=== PATIENT | female | born 1995 | race Caucasian/White ===

== ENCOUNTER 2019-09-28 12:58 | Outpatient (CLI) | payer MEDICARE, MEDICAID, SELFPAY ==
--- NOTE | 2019-09-28 | XR_ITS ---
WS: [id number] ABDOMEN SERIES Supine and upright views of the abdomen CLINICAL INFORMATION: DIARRHEA COMPARISON: None. FINDINGS: No free air on the upright view. Normal bowel gas pattern. Scattered stool in the colon. No bowel dis tention. No evidence of high-grade obstruction. XR/XR abdomen min 2V [id number] IMPRESSION: Normal abdomen
== END 2019-09-28 12:59 | disposition home or self-care (01) ==
LOC: RADOUTREAD 13:02
PROVIDERS: Family Provider Family Medicine; PCP Internal Medicine; Visit Provider Internal Medicine
DX: Z76.89 Persons encountering health services in other specified circumstances (principal)

== ENCOUNTER → 2020-01-06 15:50 | Outpatient (BNVA) | payer MEDICARE, MEDICAID, SELFPAY | PROVIDERS: Family Provider Family Medicine; PCP Internal Medicine; Visit Provider Nurse Practitioner Family | DX: R30.0 Dysuria (principal); N39.0 Urinary tract infection, site not specified | CPT/HCPCS: 81000; 87086 ==

== ENCOUNTER → 2022-08-20 17:30 | Outpatient (BNVA) | payer MEDICARE, MEDICAID, SELFPAY | PROVIDERS: Family Provider Family Medicine; PCP Family Medicine; Visit Provider Family Medicine | DX: E03.9 Hypothyroidism, unspecified (principal); R30.0 Dysuria; F43.10 Post-traumatic stress disorder, unspecified; F31.9 Bipolar disorder, unspecified | CPT/HCPCS: 80053; 81000; 84443; 85025 ==

== ENCOUNTER 2022-08-21 10:53 | Emergency (ER) | payer MEDICARE, MEDICAID, SELFPAY ==
[2022-08-21 10:57] VITALS: BP 125/81; PULSE 73; RESP 18; TEMP 36.9; O2SAT 99
--- NOTE | 2022-08-21 11:49 | ED_ITS ---
HPI - Fall General: Chief Complaint: Fall Stated Complaint: fall, head pain Time Seen by Provider: 08/21/22 11:03 History of Present Illness: Patient is in with facility staff member. Patient was at day have been [place] sitting on a low stool and went to pull a jacket out from under her and fell sideways off of the stool onto her right side shoulder. Patient believes that she may have hit her head also. The fall was witnessed and the staff member was advised that the patient did not have loss of consciousness. Patient does not feel like she did either. Patient is feeling at baseline neurologically. She does have some burning of her eyes but states this is every time she forgets her glasses and she has lost them. She denies any headache, visual disturbance or changes, nausea, vomiting. She does have some pain on the side of her right shoulder but is able to move her arm normally. Associated symptoms-after fall: Denies abdominal pain, chest pain, difficulty walking or headache(s) Review of Systems Const: Denies: fever(s) or chills Eyes: Reports: eye discomfort (Some burning bilateral eyes-chronic when she does not wear glasses) and other (Baseline right eye-lazy eye); Denies: change in vision, blurry vision or photophobia Card: Denies: chest pain or palpitations Resp: Denies: dyspnea, productive cough or non-productive cough GI: Denies: abdominal pain, nausea or vomiting : Denies: flank pain, difficulty voiding or dysuria Musc: Reports: joint pain (Mild right shoulder pain) Neuro: Denies: headache(s), numbness in extremities, weakness in extremities, sensory changes, lack of coordination or difficulty walking PFS ED PFSH: Medical History Attention deficit hyperactivity disorder Bipolar disorder Gastroesophageal reflux Hypothyroidism (acquired) Mental deficiency Posttraumatic stress disorder Rectal prolapse Treated with bowel resection and re-anastomosis in 12/2018. Surgical History History of intestinal surgery (~12/2018) Treatment of rectal prolapse (bowel resection with re-anastomosis). Performed by Dr. Polanco at [facility] in [place], [place] Family History Grandfather Diabetes Grandmother Hypertension Social History Smoking and tobacco status: former smoker Quit status (tobacco): has quit using tobacco Former quit date comment: Quit age 13. Started age 10. Second hand smoke exposure: No Alcohol intake: never Caregiver/support person: Yes Lives independently: No Household members: caregiver Marital status: Single Current occupational status: disabled History of recent travel: No Current gender identity: Female Special nikolas needs: No Agree to transfusion: Yes Physical Exam Const: COMMON NORMALS: no acute distress, patient oriented x3 and alert HENMT: COMMON NORMALS: atraumatic HEAD & SCALP: normal to inspection and atraumatic; no Garcia's sign, no hematoma, no laceration, no palpable skull fracture, no raccoon eyes and no scalp tenderness Eye: OTHER: Slight ptosis of the right eye patient and staff member report this is baseline Neck/C-Spine: COMMON NORMALS: full ROM, no lymphadenopathy, supple and no JVD Resp: COMMON NORMALS: normal respiratory effort, No use of accessory muscles and clear to auscultation bilaterally AUSCULTATION: clear to auscultation bilaterally Cardio: COMMON NORMALS: no JVD, regular rate, regular rhythm, S1 normal heart sound present, S2 normal heart sound present and No murmurs present (Cardio) RATE: regular rate RHYTHM: regular rhythm HEART SOUNDS: S1 normal heart sound present and S2 normal heart sound present Extremity: NARRATIVE EXTREMITY EXAM: Mild tenderness to palpation the right shoulder with no obvious bony or soft tissue deformity appreciated. Patient has full range of motion to the right arm and shoulder. Neuro: COMMON NORMALS: patient oriented x3, CN's II-XII intact bilaterally, moves all extremities and no focal motor deficits SENSORIUM/ORIENTATION: Yes alert Course Vital Signs: Vital signs: Vital Signs Temperature 98.4 F 08/21/22 10:57 Pulse Rate 73 08/21/22 10:57 Respiratory Rate 18 08/21/22 10:57 Blood Pressure 125/81 08/21/22 10:57 Pulse Oximetry 99 08/21/22 10:57 Oxygen Delivery Me thod 08/21/22 10:57 MDM - Fall Medical Decision Making Consider fall, contusion shoulder, closed head injury Patient's physical exam is benign. She did not have any reported loss of consciousness. At this time, I discussed with patient and staff member that I feel CT of the head would pose more risk than potential benefit. Both patient and staff member agree. I recommend close observation and return to the ER for any new or worsening symptoms. Patient has full range of motion to the right shoulder I do not have a suspicion for bony trauma. Advised patient if she has persisting pain follow-up and at that point she will need x-rays. Discharge patient back to facility. Follow-up with PCP. Return to ER as needed for new or worsening symptoms Discharge Plan Discharge Patient Disposition: Home Clinical Impression: Closed injury of head, Contusion of right shoulder Condition: Stable Prescriptions: No Action aripiprazole 20 mg tablet 20 mg PO .nightly guanfacine 2 mg tablet extended release 24 hr 2 mg PO .nightly hydroxyzine HCl 10 mg tablet 10 mg PO TID PRN Rx Instructions: 8am, 4pm, and 8pm lamotrigine 150 mg tablet 75 mg PO BID omeprazole 40 mg capsule,delayed release(DR/EC) 40 mg PO QDAY calcium carbonate 500 mg calcium (1,250 mg) tablet,chewable 1,000 mg PO QDAY PRN ibuprofen 400 mg tablet 400 mg PO Q6H PRN polyethylene glycol 3350 17 gram powder in packet 17 gm PO QDAY PRN sertraline 100 mg tablet 200 mg PO .hs topiramate 100 mg tablet 100 mg PO BID cholecalciferol (vitamin D3) 1,250 mcg (50,000 unit) capsule 50,000 unit PO .weekly levothyroxine [Synthroid] 150 mcg tablet 150 mcg PO DAILY loratadine [Allergy Relief (loratadine)] 10 mg tablet 10 mg PO DAILY PRN (Reason: allergic symptoms) ondansetron 4 mg tablet,disintegrating 4 mg PO Q8H PRN (Reason: nausea and vomiting) Discharge Orders: Discharge ED (Routine); Ordered 08/21/22 Ordered By: Angelica Marinelli Referrals: Ruma Gonzalez MD [Primary Care Provider] - Discharge Diet: Usual diet Discharge Activity: Resume usual activity Patient Instructions: Contusion, Head Injury (ED) Activity Restrictions/Additional Instructions: You may resume normal activity. Alternate Tylenol and Motrin as needed for pain. Follow-up with primary care provider as needed. Return to the ER for new or worsening symptoms. Coding Level of Care Code ED Casualty Insurance Claim Adjuster for Shahram Carmona
== END 2022-08-21 11:59 | disposition home or self-care (01) ==
PROVIDERS: Emergency Provider Nurse Practitioner Family; PCP Family Medicine
DX: S40.011A Contusion of right shoulder, initial encounter (principal); S09.8XXA Other specified injuries of head, initial encounter; Z87.891 Personal history of nicotine dependence; W07.XXXA Fall from chair, initial encounter
CPT/HCPCS: 99283

== ENCOUNTER → 2022-10-30 16:43 | Outpatient (BNVA) | payer MEDICARE, MEDICAID, SELFPAY | PROVIDERS: PCP Family Medicine; Visit Provider Nurse Practitioner Family | DX: J02.9 Acute pharyngitis, unspecified (principal) | CPT/HCPCS: 87071; 87880 ==

== ENCOUNTER → 2022-12-22 11:47 | Outpatient (BNVA) | payer MEDICARE, MEDICAID, SELFPAY | PROVIDERS: PCP Family Medicine; Visit Provider Family Medicine | DX: E03.9 Hypothyroidism, unspecified (principal); E55.9 Vitamin D deficiency, unspecified; D64.9 Anemia, unspecified; F43.10 Post-traumatic stress disorder, unspecified | CPT/HCPCS: 80053; 80061; 82306; 83540; 84443; 85025 ==

== ENCOUNTER 2023-02-10 20:41 | Emergency (ER) | payer MEDICARE, MEDICAID, SELFPAY ==
[2023-02-10 20:51] VITALS: BP 128/83; PULSE 75; RESP 16; TEMP 36.9; O2SAT 97; BMI 36.9
--- NOTE | 2023-02-10 21:12 | W.ED.ABDPA2 ---
HPI - Abdominal Pain General: Chief Complaint: Abdominal Pain Stated Complaint: somehting hanging out of rectum Time Seen by Provider: 02/10/23 20:59 History of Present Illness: Patient presents to the ER with complaints of a probable rectal prolapse. Patient has had 1 in the past that required surgery. Today when she had a bowel movement after being constipated she noticed that she prolapse. Patient then states it spontaneously reduced but it feels like its gone continually prolapse. Patient did go see her primary caregiver at [facility] but had reduced by then she placed her on triamcinolone and nystatin creams for the irritation of her rectum. Review of Systems General: Reports: 10 or more systems reviewed and unremarkable except in HPI and below PFSH ED PFSH: Medical History Attention deficit hyperactivity disorder Bipolar disorder Gastroesophageal reflux Hypothyroidism (acquired) Mental deficiency Posttraumatic stress disorder Psychiatric care Rectal prolapse Treated with bowel resection and re-anastomosis in 12/2018. Surgical History History of intestinal surgery (~12/2018) Treatment of rectal prolapse (bowel resection with re-anastomosis). Performed by Dr. Polanco at [facility] in [place], [place] Family History Grandfather Diabetes Grandmother Hypertension Social History Smoking and tobacco status: former smoker Quit status (tobacco): has quit using tobacco Former quit date comment: Quit age 13. Started age 10. Second hand smoke exposure: No Alcohol intake: never Substance/Drug Use: never Caregiver/support person: Yes Lives independently: No Household members: caregiver Marital status: Single Current occupational status: disabled Current gender identity: Female Special nikolas needs: No Agree to transfusion: Yes Physical Exam Const: COMMON NORMALS: no acute distress, average body habitus, patient oriented x3, healthy appearing, alert and well nourished Neck/C-Spine: COMMON NORMALS: no JVD Chest: COMMONS NORMALS: normal inspection of the chest and normal palpation of entire chest wall Resp: COMMON NORMALS: normal respiratory effort, No retractions, No use of accessory muscles and clear to auscultation bilaterally AUSCULTATION: clear to auscultation bilaterally Cardio: COMMON NORMALS: no JVD, regular rate, regular rhythm, S1 normal heart sound present, S2 normal heart sound present, No gallops present (Cardio), No clicks present (Cardio), No murmurs present (Cardio) and No rub (Cardio) RATE: regular rate RHYTHM: regular rhythm HEART SOUNDS: S1 normal heart sound present and S2 normal heart sound present GI: COMMON NORMALS: Normal to inspection, nondistended, normoactive bowel sounds present, Soft to palpation, non-tender, No hepatosplenomegaly present and no masses PALPATION: Yes Soft to palpation and Yes No hepatosplenomegaly present OTHER: Upon first evaluation of the external rectal area there was no rectal prolapse. But upon spreading of the cheeks a rectal prolapse spontaneously appeared. This was mild and was easily reduced. Neuro: COMMON NORMALS: patient oriented x3 SENSORIUM/ORIENTATION: Yes alert Course Vital Signs: Vital signs: Vital Signs Temperature 98.4 F 02/10/23 20:51 Pulse Rate 75 02/10/23 20:51 Respiratory Rate 16 02/10/23 20:51 Blood Pressure 128/83 02/10/23 20:51 Pulse Oximetry 97 02/10/23 20:51 Oxygen Delivery Me thod Room Air 02/10/23 20:51 MDM - Abdominal Pain Medical Decision Making Patient presented to the ER with complaints of a rectal prolapse earlier today which self reduced. Upon exam there was no rectal prolapse at first and mild rectal prolapse started appearing which was easily reduced. This was explained to the patient and her caregiver that this will probably keep happening until she sees a surgeon for probable surgery. Patient's caregiver and her understood and we told him we would refer them to case management to get a referral to a surgeon. Differential Diagnosis Unlikely abdominal pain, acute appendicitis, calculus of kidney, constipation, diverticulitis, endometriosis, gastroenteritis, pancreatitis or small bowel obstruction Medical Records I reviewed the patient's medical records. Lab Data I reviewed the patient's lab results. Discharge Plan Discharge Patient Disposition: Home Clinical Impression: Rectal prolapse Condition: Stable Prescriptions: No Action aripiprazole 20 mg tablet 20 mg PO .nightly guanfacine 2 mg tablet extended release 24 hr 2 mg PO .nightly hydroxyzine HCl 10 mg tablet 10 mg PO TID PRN Rx Instructions: 8am, 4pm, and 8pm lamotrigine 150 mg tablet 75 mg PO BID calcium carbonate 500 mg calcium (1,250 mg) tablet,chewable 1,000 mg PO QDAY PRN polyethylene glycol 3350 17 gram powder in packet 17 gm PO QDAY PRN sertraline 100 mg tablet 200 mg PO .hs topiramate 100 mg tablet 100 mg PO BID cholecalciferol (vitamin D3) 1,250 mcg (50,000 unit) capsule 50,000 unit PO .weekly loratadine [Allergy Relief (loratadine)] 10 mg tablet 10 mg PO DAILY PRN (Reason: allergic symptoms) nystatin 100,000 unit/mL suspension 5 ml PO QID 7 Days Qty: 140 0RF Rx Instructions: swish and swallow Robitussin Cough-Chest Fadi DM 5-50 mg/5 mL liquid 20 ml PO Q4H PRN (Reason: cough) Qty: 200 2RF clotrimazole [Lotrimin AF (clotrimazole)] 1 % cream 1 applic topical BID 14 Days Qty: 45 0RF rosuvastatin 5 mg tablet 5 mg PO DAILY Qty: 30 2RF omeprazole 40 mg capsule,delayed release(DR/EC) 40 mg PO QDAY Qty: 30 2RF levothyroxine [Synthroid] 150 mcg tablet See Rx Instructions .ROUTE .COMPLEX Qty: 30 4RF Dose Instruction: TAKE ONE TABLET BY MOUTH ONCE EVERY DAY Rx Instructions: TAKE ONE TABLET BY MOUTH ONCE EVERY DAY ibuprofen 400 mg tablet 400 mg PO Q6H PRN (Reason: fever of 100.2 or greater or pain) Qty: 100 0RF ondansetron 4 mg tablet,disintegrating 4 mg PO Q8H PRN (Reason: nausea and vomiting) Qty: 30 0RF Discharge Orders: Discharge ED (Routine); Ordered 02/10/23 Ordered By: Louis Ray Referrals: Ruma oGnzalez MD [Primary Care Provider] - 1-3 days Patient Instructions: Rectal Prolapse (ED) Activity Restrictions/Additional Instructions: He had been referred to case management for referral to a general surgeon for consultation on your rectal prolapse. They should call you tomorrow for an appointment but sometimes it takes 1-2 business days if you have not heard from them please feel free to call back. In the meantime try to increase your fiber and take [id number] stool supplements to avoid constipation and straining. If you have a prolapse again you may try to reduce it yourself but if you are unsuccessful return to the ER for further evaluation and treatment. Coding Level of Care Code ED Concrete Form Setter for Shahram Carmona
[2023-02-10 21:23] VITALS: BP 136/81; PULSE 74; RESP 18; O2SAT 98
[2023-02-10 21:25] VITALS: BP 136/81; PULSE 79; RESP 18; O2SAT 98
--- NOTE | 2023-02-11 08:40 | DCPLANNER ---
Addendum entered by Juliette Resendiz 02/12/23 15:36: solutions manager called clinic to confirm that patients information had been received. solutions manager was told that patients information had been received, clinic will call patient with appointment information. Addendum entered by Juliette Resendiz 02/11/23 10:48: solutions manager received the following message from the general surgery clinic regarding follow up appointment: After speaking with provider, it was decided that we do not handle rectal prolapse! Please refer elsewhere solutions manager spoke with patients guardian, patient referred to [facility]. Original Note: solutions manager had message to schedule a follow up appointment for patient with general surgery. solutions manager sent patients information to the front office staff at general surgery. Patients information will be printed and reviewed. Clinic will call patient with appointment information.
== END 2023-02-10 21:29 | disposition home or self-care (01) ==
PROVIDERS: Emergency Provider Emergency Medicine; PCP Family Medicine
DX: K62.3 Rectal prolapse (principal); E03.9 Hypothyroidism, unspecified; Z79.899 Other long term (current) drug therapy; Z87.891 Personal history of nicotine dependence
CPT/HCPCS: 99282

== ENCOUNTER 2023-02-11 09:30 | Emergency (ER) | payer MEDICARE, MEDICAID, SELFPAY ==
--- NOTE | 2023-02-11 09:53 | W.ED.GENADLT ---
HPI - General Adult General: Chief complaint: General Medical Stated complaint: rectal prolapse Time Seen by Provider: 02/11/23 09:33 Source: patient Mode of arrival: ambulatory History of Present Illness: 27-year-old female presents emergency room with complaint of rectal prolapse. She was seen last evening with the same complaint. She previous had a rectal prolapse and had a surgical correction of it in 2016 she intermittently feels like it is prolapsing last night she was seen initially it was not began a prolapse that was easily self reducing. She has not had any bright red blood per rectum she has had some triamcinolone nystatin cream she has been using topically around the rectum for irritation. Onset (ago): day(s) Severity: mild Relieving factors: none Exacerbating factors: none Associated symptoms: Deny chest pain, confusion, cough, diaphoresis, decreased appetite, dyspnea, fevers/chills, headache(s), malaise, nausea, rash, palpitations, seizures, short of breath, syncope, vomiting or weakness Review of Systems Const: Denies: fever(s), chills, malaise or diaphoresis ENMT: Denies: throat pain, ear or mastoid pain, nasal discharge or nasal congestion Card: Denies: chest pain, palpitations or syncope Resp: Denies: dyspnea GI: Reports: rectal pain; Denies: abdominal pain, nausea or vomiting : Denies: flank pain, difficulty voiding, dysuria, urinary frequency or urinary urgency Skin/Breast: Denies: rash or pruritus Neuro: Denies: headache(s) or confusion PFS ED PFSH: Medical History Attention deficit hyperactivity disorder Bipolar disorder Gastroesophageal reflux Hypothyroidism (acquired) Mental deficiency Posttraumatic stress disorder Psychiatric care Rectal prolapse Treated with bowel resection and re-anastomosis in 12/2018. Surgical History History of intestinal surgery (~12/2018) Treatment of rectal prolapse (bowel resection with re-anastomosis). Performed by Dr. Polanco at [facility] in [place], [place] Family History Grandfather Diabetes Grandmother Hypertension Social History (Reviewed 02/11/23 @ 09:59 by REJI Abreu Smoking and tobacco status: former smoker Quit status (tobacco): has quit using tobacco Former quit date comment: Quit age 13. Started age 10. Second hand smoke exposure: No Alcohol intake: never Substance/Drug Use: never Caregiver/support person: Yes Lives independently: No Household members: caregiver Marital status: Single Current occupational status: disabled Current gender identity: Female Special nikolas needs: No Agree to transfusion: Yes Physical Exam Const: GENERAL APPEARANCE: cooperative and comfortable ORIENTATION/CONSCIOUSNESS: Yes awake, Yes oriented to person, Yes oriented to place and Yes oriented to time HENMT: COMMON NORMALS: normocephalic, atraumatic and hearing grossly normal bilaterally HEAD & SCALP: normocephalic and atraumatic Resp: COMMON NORMALS: normal respiratory effort, No retractions, No use of accessory muscles and clear to auscultation bilaterally AUSCULTATION: clear to auscultation bilaterally Cardio: COMMON NORMALS: regular rate, regular rhythm and No murmurs present (Cardio) RATE: regular rate RHYTHM: regular rhythm GI: COMMON NORMALS: Soft to palpation and No hepatosplenomegaly present AUSCULTATION: Yes normoactive bowel sounds PALPATION: Yes Soft to palpation, No Tenderness to palpation present (GI), No Guarding due to palpation present (GI) and Yes No hepatosplenomegaly present Extremity: COMMON NORMALS: normal to inspection, capillary refill normal, no clubbing, cyanosis or edema, no calf tenderness and no pedal edema Neuro: SENSORIUM/ORIENTATION: Yes oriented to person, Yes oriented to place and Yes oriented to time Skin: COMMON NORMALS: no rashes or lesions noted GENERAL SKIN EXAM: no rashes or lesions noted [facility] - General Adult Medical Decision Making Rectal prolapse is spontaneously reducing when he went back to evaluate it with nurse power plant installer it had reduced on its own. She is listed as taking her MiraLAX as as needed increase that to daily regular avoid fibers that will increase bulk to the stool and may cause further problems MiraLAX probably be a better option we will get her set up to follow-up with colorectal surgery no emergent intervention needed at this time Medical Records I reviewed the patient's medical records. Discharge Plan Discharge Patient Disposition: Home Clinical Impression: Rectal prolapse Condition: Stable Prescriptions: New polyethylene glycol 3350 17 gram/dose powder 17 g PO DAILY Qty: 850 0RF Changed polyethylene glycol 3350 17 gram powder in packet 17 gm PO QDAY Qty: 30 0RF No Action aripiprazole 20 mg tablet 20 mg PO .nightly guanfacine 2 mg tablet extended release 24 hr 2 mg PO .nightly hydroxyzine HCl 10 mg tablet 10 mg PO TID PRN Rx Instructions: 8am, 4pm, and 8pm lamotrigine 150 mg tablet 75 mg PO BID calcium carbonate 500 mg calcium (1,250 mg) tablet,chewable 1,000 mg PO QDAY PRN sertraline 100 mg tablet 200 mg PO .hs topiramate 100 mg tablet 100 mg PO BID cholecalciferol (vitamin D3) 1,250 mcg (50,000 unit) capsule 50,000 unit PO .weekly loratadine [Allergy Relief (loratadine)] 10 mg tablet 10 mg PO DAILY PRN (Reason: allergic symptoms) nystatin 100,000 unit/mL suspension 5 ml PO QID 7 Days Qty: 140 0RF Rx Instructions: swish and swallow Robitussin Cough-Chest Fadi DM 5-50 mg/5 mL liquid 20 ml PO Q4H PRN (Reason: cough) Qty: 200 2RF clotrimazole [Lotrimin AF (clotrimazole)] 1 % cream 1 applic topical BID 14 Days Qty: 45 0RF rosuvastatin 5 mg tablet 5 mg PO DAILY Qty: 30 2RF omeprazole 40 mg capsule,delayed release(DR/EC) 40 mg PO QDAY Qty: 30 2RF levothyroxine [Synthroid] 150 mcg tablet See Rx Instructions .ROUTE .COMPLEX Qty: 30 4RF Dose Instruction: TAKE ONE TABLET BY MOUTH ONCE EVERY DAY Rx Instructions: TAKE ONE TABLET BY MOUTH ONCE EVERY DAY ibuprofen 400 mg tablet 400 mg PO Q6H PRN (Reason: fever of 100.2 or greater or pain) Qty: 100 0RF ondansetron 4 mg tablet,disintegrating 4 mg PO Q8H PRN (Reason: nausea and vomiting) Qty: 30 0RF Discharge Orders: Discharge ED (Routine); Ordered 02/11/23 Ordered By: Myles Sher Referrals: Ruma Gonzalez MD [Primary Care Provider] - Discharge Diet: Low Fat Discharge Activity: Resume usual activity Patient Instructions: Opioid Safety, Pain Management Activity Restrictions/Additional Instructions: Use the MiraLAX daily. Case management will make arrangements for you for a referral to colorectal surgery. Coding Level of Care Code ED Business Management Intern for Shahram Carmona
== END 2023-02-11 10:47 | disposition home or self-care (01) ==
PROVIDERS: Emergency Provider Family Medicine; PCP Family Medicine
DX: K62.3 Rectal prolapse (principal)
CPT/HCPCS: 99283

== ENCOUNTER 2023-02-12 16:50 | Emergency (ER) | payer MEDICARE, MEDICAID, SELFPAY ==
[2023-02-12 17:02] VITALS: BP 129/76; PULSE 77; RESP 18; TEMP 36.7; O2SAT 97; BMI 36.9
--- NOTE | 2023-02-12 17:10 | ED_ITS ---
HPI - Extremity Problem General: Chief complaint: Extremity Injury, Lower Stated complaint: prolapsed rectum Time Seen by Provider: 02/12/23 17:05 History of Present Illness: 27-year-old female brought to emergency room by balance wheel motion inspector due to prolapsed rectum while having a BM today. Patient was seen and evaluated in the ER twice for similar complaint. Upon present emergency room today patient has any pain. No rectal bleeding, abdominal pain, nausea or vomiting. Review of Systems General: Reports: 10 or more systems reviewed and unremarkable except in HPI and below GI: Reports: rectal swelling; Denies: abdominal pain, nausea, vomiting, hematemesis, coffee ground emesis, dysphagia, excessive flatus, fecal incontinence, change in bowel habits, pain on defecation, rectal pain, rectal itching, change in stool character, hematochezia, melena or mucus in stool PFSH ED PFSH: Medical History Attention deficit hyperactivity disorder Bipolar disorder Gastroesophageal reflux Hypothyroidism (acquired) Mental deficiency Posttraumatic stress disorder Psychiatric care Rectal prolapse Treated with bowel resection and re-anastomosis in 12/2018. Surgical History History of intestinal surgery (~12/2018) Treatment of rectal prolapse (bowel resection with re-anastomosis). Performed by Dr. Polanco at [facility] in [place], [place] Family History Grandfather Diabetes Grandmother Hypertension Social History Smoking and tobacco status: former smoker Quit status (tobacco): has quit using tobacco Former quit date comment: Quit age 13. Started age 10. Second hand smoke exposure: No Alcohol intake: never Substance/Drug Use: never Caregiver/support person: Yes Lives independently: No Household members: caregiver Marital status: Single Current occupational status: disabled Current gender identity: Female Special nikolas needs: No Agree to transfusion: Yes Physical Exam Const: COMMON NORMALS: no acute distress, average body habitus, patient oriented x3, no limitations, healthy appearing, alert and well nourished Neck/C-Spine: COMMON NORMALS: no JVD Resp: COMMON NORMALS: normal respiratory effort, No retractions, No use of accessory muscles, clear to auscultation bilaterally and percussion normal AUSCULTATION: clear to auscultation bilaterally PERCUSSION: percussion normal Cardio: COMMON NORMALS: no JVD, regular rate, regular rhythm, S1 normal heart sound present, S2 normal heart sound present, No gallops present (Cardio), No clicks present (Cardio), No murmurs present (Cardio), No rub (Cardio) and Peripheral pulses 2+ throughout RATE: regular rate RHYTHM: regular rhythm HEART SOUNDS: S1 normal heart sound present and S2 normal heart sound present PERIPHERAL PULSES: Peripheral pulses 2+ throughout GI: INSPECTION: No Laceration(s) present (GI) RECTAL EXAM: visual inspection normal, No External hemorrhoid(s) present, No Internal hemorrhoid(s) present, No Rectal prolapse, no fecal impaction, no lesion(s) noted, no fissure noted and no laceration(s) noted : COMMON NORMALS: Yes no CVA tenderness, Yes normal external appearance, Yes normal appearance of the vagina, Yes normal appearance of the cervix, Yes normal bimanual exam, Yes No adnexal tenderness and Yes no masses BLADDER/KIDNEY EXAM: Yes no CVA tenderness BIMANUAL EXAM - VAGINA & UTERUS: Yes normal bimanual exam Back/Pelvis: COMMON NORMALS: no CVA tenderness Neuro: COMMON NORMALS: patient oriented x3 SENSORIUM/ORIENTATION: Yes alert Course Vital Signs: Vital signs: Vital Signs Temperature 98.0 F 02/12/23 17:02 Pulse Rate 77 02/12/23 17:02 Respiratory Rate 18 02/12/23 17:02 Blood Pressure 129/76 02/12/23 17:02 Pulse Oximetry 97 02/12/23 17:02 Oxygen Delivery Me thod Room Air 02/12/23 17:02 MDM - Extremity (Nontraumatic) Medical Decision Making Patient has been comfortable emergency room. Discussed current plan with the career development counselor and patient. She has a thorough examination no obvious rectal prolapse noted. She will be given referral to see GI for further evaluation and treatment. Discharge Plan Discharge Patient Disposition: Home Clinical Impression: Rectal prolapse Condition: Stable Prescriptions: No Action aripiprazole 20 mg tablet 20 mg PO .nightly guanfacine 2 mg tablet extended release 24 hr 2 mg PO .nightly hydroxyzine HCl 10 mg tablet 10 mg PO TID PRN Rx Instructions: 8am, 4pm, and 8pm lamotrigine 150 mg tablet 75 mg PO BID calcium carbonate 500 mg calcium (1,250 mg) tablet,chewable 1,000 mg PO QDAY PRN sertraline 100 mg tablet 200 mg PO .hs topiramate 100 mg tablet 100 mg PO BID cholecalciferol (vitamin D3) 1,250 mcg (50,000 unit) capsule 50,000 unit PO .weekly loratadine [Allergy Relief (loratadine)] 10 mg tablet 10 mg PO DAILY PRN (Reason: allergic symptoms) nystatin 100,000 unit/mL suspension 5 ml PO QID 7 Days Qty: 140 0RF Rx Instructions: swish and swallow Robitussin Cough-Chest Fadi DM 5-50 mg/5 mL liquid 20 ml PO Q4H PRN (Reason: cough) Qty: 200 2RF clotrimazole [Lotrimin AF (clotrimazole)] 1 % cream 1 applic topical BID 14 Days Qty: 45 0RF rosuvastatin 5 mg tablet 5 mg PO DAILY Qty: 30 2RF omeprazole 40 mg capsule,delayed release(DR/EC) 40 mg PO QDAY Qty: 30 2RF levothyroxine [Synthroid] 150 mcg tablet See Rx Instructions .ROUTE .COMPLEX Qty: 30 4RF Dose Instruction: TAKE ONE TABLET BY MOUTH ONCE EVERY DAY Rx Instructions: TAKE ONE TABLET BY MOUTH ONCE EVERY DAY ibuprofen 400 mg tablet 400 mg PO Q6H PRN (Reason: fever of 100.2 or greater or pain) Qty: 100 0RF ondansetron 4 mg tablet,disintegrating 4 mg PO Q8H PRN (Reason: nausea and vomiting) Qty: 30 0RF polyethylene glycol 3350 17 gram powder in packet 17 gm PO QDAY Qty: 30 0RF polyethylene glycol 3350 17 gram/dose powder 17 g PO DAILY Qty: 850 0RF Discharge Orders: Discharge ED (Routine); Ordered 02/12/23 Ordered By: Kuldeep Combs Referrals: Ruma Gonzalez MD [Primary Care Provider] - Basim Pino DO [Physician] - 1-3 days Patient Instructions: Opioid Safety, Pain Management Coding Level of Care Code ED Career Development Counselor for Chg Kristine
== END 2023-02-12 18:59 | disposition home or self-care (01) ==
PROVIDERS: Emergency Provider Family Medicine; PCP Family Medicine
DX: K62.3 Rectal prolapse (principal)
CPT/HCPCS: 99283

== ENCOUNTER → 2023-03-10 17:38 | Outpatient (BNVA) | payer MEDICARE, MEDICAID, SELFPAY | PROVIDERS: PCP Family Medicine; Visit Provider Family Medicine | DX: E78.5 Hyperlipidemia, unspecified (principal) | CPT/HCPCS: 80061 ==

== ENCOUNTER 2023-04-26 21:23 | Emergency (ER) | payer MEDICARE, MEDICAID, SELFPAY ==
[2023-04-26] VITALS (9 sets, daily range): BP systolic 106–130; BP diastolic 60–82; PULSE 93; RESP 16; TEMP 36.6; O2SAT 97–100
--- NOTE | 2023-04-26 22:08 | PC.NURSE ---
this nurse was in the room with Dr. Wang while he performed a rectal examine
--- NOTE | 2023-04-26 22:19 | XRR_ITS ---
PROCEDURE INFORMATION: Exam: XR Abdomen Exam date and time: 04/26/2023 10:31 PM Age: 28 years old Clinical indication: Abdominal pain; Additional info: Abd pain TECHNIQUE: Imaging protocol: Radiologic exam of the abdomen. Views: Frontal supine view of the abdomen. 1 View. COMPARISON: CR XR abdomen min 2V [id number] 09/28/2019 11:13 AM FINDINGS: Gastrointestinal tract: Normal. No bowel dilation. Bones/joints: Unremarkable. XR/XR KUB portable [id number] IMPRESSION: No acute findings.
--- NOTE | 2023-04-26 22:57 | W.ED.GENADLT ---
HPI - General Adult General: Chief complaint: General Medical Stated complaint: bleeding in stool Time Seen by Provider: 04/26/23 21:51 History of Present Illness: 28-year-old female who is 1 week out from rectal reconstruction surgery for repeated rectal prolapse. She complains of significant rectal bleeding today. She has bled since her surgery, but it had been improving. There was an increased amount of rectal bleeding with clotting today. She notes that her rectum is more uncomfortable than it has been. She is worried that she tore stitches. Associated symptoms: Reports nausea; Deny chest pain, dyspnea, headache(s), rash, palpitations or vomiting Review of Systems Const: Denies: fever(s) Card: Denies: chest pain or palpitations Resp: Denies: dyspnea, productive cough or non-productive cough GI: Reports: nausea, rectal pain, rectal itching and hematochezia; Denies: abdominal pain or vomiting Skin/Breast: Reports: pruritus; Denies: rash Neuro: Denies: headache(s) PFSH ED PFSH: Medical History Attention deficit hyperactivity disorder Bipolar disorder Gastroesophageal reflux Hypothyroidism (acquired) Mental deficiency Posttraumatic stress disorder Psychiatric care Rectal prolapse Treated with bowel resection and re-anastomosis in 12/2018. Surgical History History of intestinal surgery (~12/2018) Treatment of rectal prolapse (bowel resection with re-anastomosis). Performed by Dr. Polanco at [facility] in [place], [place] Family History Grandfather Diabetes Grandmother Hypertension Social History Smoking and tobacco status: former smoker Quit status (tobacco): has quit using tobacco Former quit date comment: Quit age 13. Started age 10. Second hand smoke exposure: No Alcohol intake: never Substance/Drug Use: never Caregiver/support person: Yes Lives independently: No Household members: caregiver Marital status: Single Current occupational status: disabled Current gender identity: Female Special nikolas needs: No Agree to transfusion: Yes Physical Exam Const: COMMON NORMALS: no acute distress GENERAL APPEARANCE: cooperative; not ill appearing and not frail appearing HENMT: COMMON NORMALS: normocephalic, atraumatic and Normal external nose present HEAD & SCALP: normocephalic and atraumatic FACE & SINUS: normal facial exam and face symmetric NOSE: Normal external nose present Eye: COMMON NORMALS: Equal, round and reactive pupils present and EOMs intact bilaterally PUPIL: Yes Equal, round and reactive pupils present Neck/C-Spine: GENERAL: Yes trachea midline Chest: CHEST: Yes Symmetrical chest wall rise Resp: COMMON NORMALS: normal respiratory effort, No retractions, No use of accessory muscles and clear to auscultation bilaterally AUSCULTATION: clear to auscultation bilaterally Cardio: COMMON NORMALS: regular rate and regular rhythm RATE: regular rate RHYTHM: regular rhythm GI: COMMON NORMALS: Normal to inspection, nondistended, normoactive bowel sounds present INSPECTION: No Laceration(s) present (GI) RECTAL EXAM: visual inspection normal, stool normal, No External hemorrhoid(s) present, No Rectal prolapse, no fissure noted, no hemorrhoids noted and no laceration(s) noted Extremity: COMMON NORMALS: no pedal edema Neuro: GINI COMA SCALE: document GCS findings Gini coma scale eye opening: Spontaneous [place] coma scale verbal response: Orientated Gini coma scale motor response: Obey commands Gini coma scale total score: 15 SENSORY EXAM: Yes extremities (intact) Psych: COMMON NORMALS: speech normal SPEECH: Yes normal speech Skin: COMMON NORMALS: no rashes or lesions noted GENERAL SKIN EXAM: no rashes or lesions noted Course Vital Signs: Vital signs: Vital Signs Temperature 97.8 F 04/26/23 21:24 Pulse Rate 83 04/27/23 00:59 Respiratory Rate 16 04/26/23 21:24 Blood Pressure 105/60 04/27/23 00:59 Pulse Oximetry 100 04/27/23 00:59 Oxygen Delivery Me thod Room Air 04/26/23 21:24 [facility] - General Adult Medical Decision Making This patient has had no rectal bleeding since she has been here. Her hemoglobin is down to 9.4. We do not know what her hemoglobin ended up being after surgery. Again no active bleeding here. Inspection of the rectum reveals no sign of injury. KUB reveals no acute findings, although there is an increase stool load. We will add lactulose to her MiraLAX to further soften the stool to prevent tearing. This will also prevent her from straining. She will repeat a hemoglobin on Thursday. Lab Data 04/26/23 22:54 04/26/23 22:54 Radiology Impressions KUB X-Ray 04/26/23 22:19 IMPRESSION: No acute findings. Laboratory Results WBC 9.27 10^3/uL (3.29-11.43) 04/26/23 22:54 RBC 3.19 10^6/uL (3.85-5.65) L 04/26/23 22:54 Hgb 9.40 g/dL (11.27-16.99) L 04/26/23 22:54 Hct 29.9 % (36-47) L 04/26/23 22:54 MCV 93.7 fl (85-98) 04/26/23 22:54 MCH 29.5 pg (27-33) 04/26/23 22:54 MCHC 31.4 g/dL (30-55) 04/26/23 22:54 RDW 12.7 % (12.1-15.1) 04/26/23 22:54 Plt Count 415 10^3/cmm (157-399) H 04/26/23 22:54 MPV 9.0 fL (7.4-10.4) 04/26/23 22:54 Neut % (Auto) 61.3 % 04/26/23 22:54 Lymph % (Auto) 29.3 % 04/26/23 22:54 [place] % (Auto) 5.9 % 04/26/23 22:54 Eos % (Auto) 2.4 % 04/26/23 22:54 Baso % (Auto) 0.3 % 04/26/23 22:54 Neut # (Auto) 5.68 10^3/uL (1.8-7.7) 04/26/23 22:54 Lymph # (Auto) 2.7 10^3/uL (0.8-4.8) 04/26/23 22:54 [place] # (Auto) 0.6 10^3/uL (0.2-0.9) 04/26/23 22:54 Eos # (Auto) 0.2 10^3/uL (0.0-0.8) 04/26/23 22:54 Baso # (Auto) 0.0 10^3/uL (0.0-0.1) 04/26/23 22:54 Nucleated RBC % (auto) 0 % 04/26/23 22:54 Nucleated RBCs # 0.0 /100WBC 04/26/23 22:54 PT 14.40 SECONDS (12.1-14.9) 04/26/23 22:54 INR 1.09 (0.8-1.2) 04/26/23 22:54 APTT 29.2 SECONDS (23.9-36.7) 04/26/23 22:54 Sodium 146 mmol/L (136-145) H 04/26/23 22:54 Potassium 4.4 mmol/L (3.5-5.1) 04/26/23 22:54 Chloride 112 mmol/L (98-107) H 04/26/23 22:54 Carbon Dioxide 25 mmol/L (22-29) 04/26/23 22:54 Anion Gap 13.4 (5-19) 04/26/23 22:54 BUN 13 mg/dL (6-20) 04/26/23 22:54 Creatinine 0.9 mg/dL (0.5-0.9) 04/26/23 22:54 GFR Calculation 73.5 mL/min (90-130) L 04/26/23 22:54 Glucose 105 mg/dL (65-115) 04/26/23 22:54 Calculated Osmolality 302 mOsm/kg (285-295) H 04/26/23 22:54 Calcium 8.5 mg/dL (8.5-10.5) 04/26/23 22:54 Total Bilirubin 0.2 mg/dL (0.15-1.2) 04/26/23 22:54 AST 11 U/L (0-32) 04/26/23 22:54 ALT 15 U/L (0-33) 04/26/23 22:54 Alkaline Phosphatase 66 U/L (35-105) 04/26/23 22:54 Total Protein 6.5 g/dL (6.6-8.7) L 04/26/23 22:54 Albumin 3.9 g/dL (3.5-5.2) 04/26/23 22:54 Globulin 2.6 g/dL (1.3-4.6) 04/26/23 22:54 Blood Type O Positive 04/26/23 22:54 Rho(D) Type Positive 04/26/23 22:54 Antibody Screen Negative 04/26/23 22:54 All radiology interpretation(s) finalized by discharge Discharge Plan Discharge Patient Disposition: Home Clinical Impression: Rectal bleeding Condition: Stable Prescriptions: New lactulose 20 gram/30 mL solution 20 g PO Q2H 2 Days Qty: 720 0RF Rx Instructions: until desired laxative effect No Action ferrous sulfate 325 mg (65 mg iron) tablet 325 mg PO DAILY acetaminophen 325 mg capsule 650 mg PO QID PRN (Reason: fever or pain) CPAP Machine nasal nystatin 100,000 unit/gram cream 1 applic topical BID triamcinolone acetonide 0.1 % cream 1 applic topical BID levothyroxine [Synthroid] 150 mcg tablet See Rx Instructions .ROUTE .COMPLEX Qty: 30 4RF Dose Instruction: TAKE ONE TABLET BY MOUTH ONCE EVERY DAY Rx Instructions: TAKE ONE TABLET BY MOUTH ONCE EVERY DAY polyethylene glycol 3350 17 gram/dose powder 17 g PO DAILY Qty: 850 2RF Rx Instructions: with 8oz of water daily rosuvastatin 5 mg tablet See Rx Instructions .ROUTE .COMPLEX Qty: 30 2RF Dose Instruction: TAKE ONE TABLET BY MOUTH EVERY DAY Rx Instructions: TAKE ONE TABLET BY MOUTH EVERY DAY aripiprazole 20 mg tablet See Rx Instructions .ROUTE .COMPLEX Qty: 30 2RF Dose Instruction: TAKE ONE TABLET BY MOUTH AT BEDTIME Rx Instructions: TAKE ONE TABLET BY MOUTH AT BEDTIME guanfacine 2 mg tablet extended release 24 hr See Rx Instructions .ROUTE .COMPLEX Qty: 30 2RF Dose Instruction: TAKE ONE TABLET BY MOUTH AT BEDTIME Rx Instructions: TAKE ONE TABLET BY MOUTH AT BEDTIME sertraline 100 mg tablet See Rx Instructions .ROUTE .COMPLEX Qty: 60 2RF Dose Instruction: TAKE TWO TABLETS BY MOUTH AT BEDTIME Rx Instructions: TAKE TWO TABLETS BY MOUTH AT BEDTIME chapstick See Rx Instructions .ROUTE .COMPLEX Qty: 1 4RF Rx Instructions: apply as needed for chapped lips; Use as needed for chapped lips. calcium carbonate 500 mg calcium (1,250 mg) tablet,chewable 1,000 mg PO QDAY PRN (Reason: dyspepsia) Qty: 100 0RF ibuprofen 400 mg tablet 400 mg PO Q6H PRN (Reason: fever of 100.2 or greater or pain) Qty: 100 0RF ondansetron 4 mg tablet,disintegrating 4 mg PO Q8H PRN (Reason: nausea and vomiting) Qty: 30 0RF Sunscreen See Rx Instructions .ROUTE .COMPLEX Qty: 1 4RF Rx Instructions: apply when in sun exposure.; ergocalciferol (vitamin D2) 1,250 mcg (50,000 unit) capsule See Rx Instructions .ROUTE .COMPLEX Qty: 4 0RF Dose Instruction: TAKE ONE CAPSULE BY MOUTH ONCE EVERY WEEK Rx Instructions: TAKE ONE CAPSULE BY MOUTH ONCE EVERY WEEK topiramate 100 mg tablet See Rx Instructions .ROUTE .COMPLEX Qty: 60 0RF Dose Instruction: TAKE ONE TABLET BY MOUTH TWICE DAILY Rx Instructions: TAKE ONE TABLET BY MOUTH TWICE DAILY lamotrigine 150 mg tablet See Rx Instructions .ROUTE .COMPLEX Qty: 75 0RF Dose Instruction: TAKE 1/2 TABLET BY MOUTH EVERY MORNING AND TAKE 2 TABLETS AT BEDTIME Rx Instructions: TAKE 1/2 TABLET BY MOUTH EVERY MORNING AND TAKE 2 TABLETS AT BEDTIME loratadine 10 mg tablet See Rx Instructions .ROUTE .COMPLEX Qty: 90 0RF Dose Instruction: TAKE ONE TABLET BY MOUTH ONE TIME EVERY DAY NEEDED FOR ALLERGIES Rx Instructions: TAKE ONE TABLET BY MOUTH ONE TIME EVERY DAY NEEDED FOR ALLERGIES Cough Drops 5.8 mg lozenge 5.8 mg mucous membrane Q4H PRN (Reason: cough) Qty: 30 1RF Rx Instructions: Do not use more than 3 days; will need appointment with PCP omeprazole 40 mg capsule,delayed release(DR/EC) See Rx Instructions .ROUTE .COMPLEX Qty: 30 2RF Dose Instruction: TAKE ONE CAPSULE BY MOUTH EVERY DAY Rx Instructions: TAKE ONE CAPSULE BY MOUTH EVERY DAY fenofibrate 160 mg tablet 160 mg PO DAILY Qty: 30 2RF Discharge Orders: Discharge ED (Routine); Ordered 04/27/23 Ordered By: Rasheed Wang Referrals: Ruma Gonzalez MD [Primary Care Provider] - Patient Instructions: Rectal Bleeding (ED) Activity Restrictions/Additional Instructions: Use medications as instructed. Continue with your MiraLAX as well. Monitor your bleeding. Return for large amounts of rectal bleeding. Have your blood drawn on Thursday as we discussed. Orders have been written. Follow-up with your doctor. Call your surgeon in the morning, and let them know you were seen here with continued bleeding. They may wish to see you or perform other testing. Coding Level of Care Code ED Photonic Laboratory Technician for Shahram Carmona
[2023-04-26 23:07] LABS: Basophils % 0.3 %; Eosinophils # 0.2 10^3/uL (0.0-0.8); Eosinophils % 2.4 %; Hematocrit 29.9 % (36-47); Lymphocytes # 2.7 10^3/uL (0.8-4.8); Lymphocytes % 29.3 %; Mean Corpuscular HGB Conc 31.4 g/dL (30-55); Mean Corpuscular Hemoglobin 29.5 pg (27-33); Mean Corpuscular Volume 93.7 fl (85-98); Monocytes # 0.6 10^3/uL (0.2-0.9); Monocytes % 5.9 %; Neutrophils # 5.68 10^3/uL (1.8-7.7); Neutrophils % 61.3 %; Nucleated Red Blood Cells % 0 %; Platelet Count 415 10^3/cmm (157-399); Red Blood Count 3.19 10^6/uL (3.85-5.65); Red Cell Distribution Width 12.7 % (12.1-15.1); White Blood Count 9.27 10^3/uL (3.29-11.43)
[2023-04-26 23:17] LABS: INR 1.09 (0.8-1.2)
[2023-04-26 23:18] LABS: Partial Thromboplastin Time 29.2 SECONDS (23.9-36.7)
[2023-04-26 23:23] LABS: Albumin Level 3.9 g/dL (3.5-5.2); Alkaline Phosphatase 66 U/L (35-105); Anion Gap 13.4 (5-19); Aspartate Amino Transferase 11 U/L (0-32); Blood Urea Nitrogen 13 mg/dL (6-20); Calcium 8.5 mg/dL (8.5-10.5); Carbon Dioxide 25 mmol/L (22-29); Chloride 112 mmol/L (98-107); Globulin 2.6 g/dL (1.3-4.6); Glomerular Filtration Rate 73.5 mL/min (90-130); Glucose 105 mg/dL (65-115); Osmolality Calculated 302 mOsm/kg (285-295); Potassium 4.4 mmol/L (3.5-5.1); Sodium 146 mmol/L (136-145); Total Bilirubin 0.2 mg/dL (0.15-1.2); Total Protein 6.5 g/dL (6.6-8.7)
[2023-04-26 23:33] LABS: Alanine Aminotransferase 15 U/L (0-33)
[2023-04-27 00:59] VITALS: BP 105/60; PULSE 83; O2SAT 100
== END 2023-04-27 00:57 | disposition home or self-care (01) ==
PROVIDERS: Emergency Provider Emergency Medicine; PCP Family Medicine
DX: K62.5 Hemorrhage of anus and rectum (principal); Z87.891 Personal history of nicotine dependence
CPT/HCPCS: 74018; 80053; 85025; 85610; 85730; 86850; 86900; 99284

== ENCOUNTER 2023-04-27 09:52 | Emergency (ER) | payer MEDICARE, MEDICAID, SELFPAY ==
[2023-04-27] VITALS (8 sets, daily range): BP systolic 81–121; BP diastolic 39–86; PULSE 80–92; RESP 17; TEMP 36.8; O2SAT 96–100; BMI 35.0
--- NOTE | 2023-04-27 09:58 | ED_ITS ---
HPI - GI Bleed General: Chief complaint: GI Bleed Stated complaint: rectal bleed Time Seen by Provider: 04/27/23 09:54 Source: patient Mode of arrival: ambulatory History of Present Illness: 28-year-old female who presents emergency room complaining of rectal bleeding. Patient recently had surgery for rectal prolapse at an outside facility was done about 3 weeks ago. She was seen last night for complaint of rectal bleeding was stable and discharged home returns this morning after waking up with large amounts of blood per rectum. On arrival here she is soaked through her close and has blood clots at the rectal verge. She denies fever sweats or chills. She has been little bit lightheaded she is not tachycardic or hypotensive on arrival. MD complaint: gross hematochezia Onset (ago): hour(s) Pain Consistency: intermittent Severity: mild Relieving factors: none Exacerbating factors: none Context: other (Rectal prolapse recent surgery) Associated symptoms: Denies abdominal pain, chills, easy bruising, epistaxis, fever(s), headache(s), malaise, nausea, other bleeding, poor appetite, rash, syncope, vomiting or weakness Review of Systems Const: Denies: fever(s), chills or malaise ENMT: Denies: epistaxis Card: Denies: chest pain, palpitations or syncope Resp: Denies: dyspnea, productive cough or non-productive cough GI: Reports: hematochezia; Denies: abdominal pain, nausea or vomiting : Denies: flank pain, difficulty voiding, dysuria, urinary frequency or ur inary urgency Skin/Breast: Denies: rash Neuro: Denies: headache(s) Flynn/Lymph: Denies: easy bruising PFSH ED PFSH: Medical History Attention deficit hyperactivity disorder Bipolar disorder Gastroesophageal reflux Hypothyroidism (acquired) Mental deficiency Posttraumatic stress disorder Psychiatric care Rectal prolapse Treated with bowel resection and re-anastomosis in 12/2018. Surgical History History of intestinal surgery (~12/2018) Treatment of rectal prolapse (bowel resection with re-anastomosis). Performed by Dr. Polanco at [facility] in [place], [place] Family History Grandfather Diabetes Grandmother Hypertension Social History Smoking and tobacco status: former smoker Quit status (tobacco): has quit using tobacco Former quit date comment: Quit age 13. Started age 10. Second hand smoke exposure: No Alcohol intake: never Substance/Drug Use: never Caregiver/support person: Yes Lives independently: No Household members: caregiver Marital status: Single Current occupational status: disabled Current gender identity: Female Special nikolas needs: No Agree to transfusion: Yes Physical Exam Const: GENERAL APPEARANCE: cooperative and comfortable ORIENTATION/CONSCIOUSNESS: Yes awake, Yes oriented to person, Yes oriented to place and Yes oriented to time HENMT: COMMON NORMALS: normocephalic, atraumatic and hearing grossly normal bilaterally HEAD & SCALP: normocephalic and atraumatic Resp: COMMON NORMALS: normal respiratory effort, No retractions, No use of accessory muscles and clear to auscultation bilaterally AUSCULTATION: clear t o auscultation bilaterally Cardio: COMMON NORMALS: regular rate, regular rhythm and No murmurs present (Cardio) RATE: regular rate RHYTHM: regular rhythm GI: COMMON NORMALS: Soft to palpation and No hepatosplenomegaly present AUSCULTATION: Yes normoactive bowel sounds PALPATION: Yes Soft to palpation, No Tenderness to palpation present (GI), No Guarding due to palpation present (GI) and Yes No hepatosplenomegaly present OTHER: Rectal exam blood at the rectal verge clotted. Large amount of blood in the clothing. No identifiable hemorrhoids. No lacerations no sign of abscess no palpable nodules. : COMMON NORMALS: Yes no CVA tenderness BLADDER/KIDNEY EXAM: Yes no CVA tenderness Back/Pelvis: COMMON NORMALS: no CVA tenderness Extremity: COMMON NORMALS: normal to inspection, capillary refill normal, no clubbing, cyanosis or edema, no calf tenderness and no pedal edema Neuro: SENSORIUM/ORIENTATION: Yes oriented to person, Yes oriented to place and Yes oriented to time Skin: COMMON NORMALS: no rashes or lesions noted GENERAL SKIN EXAM: no rashes or lesions noted Course Vital Signs: Vital signs: Vital Signs Temperature 98.3 F 04/27/23 09:55 Pulse Rate 80 04/27/23 14:00 Respiratory Rate 17 04/27/23 12:00 Blood Pressure 110/58 04/27/23 14:00 Pulse Oximetry 96 04/27/23 14:00 Oxygen Delivery Me thod Room Air 04/27/23 14:00 MDM - GI Bleed Medical Decision Making CT shows soft tissue inflammation circumferential at the rectum contiguous is presacral soft tissue swelling a few small foci of air as well mildly increased density concerning for blood at the surgical site. Discussed with colorectal surgery at [facility] we will transfer patient there for monitoring and reevaluation. Started on Zosyn prophylactically Medical Records I reviewed the patient's medical records. Lab Data I reviewed the patient's lab results. 04/27/23 10:18 04/27/23 10:18 Laboratory Results WBC 6.69 10^3/uL (3.29-11.43) 04/27/23 10:18 RBC 2.72 10^6/uL (3.85-5.65) L 04/27/23 10:18 Hgb 8.20 g/dL (11.27-16.99) L 04/27/23 10:18 Hct 26.0 % (36-47) L 04/27/23 10:18 MCV 95.6 fl (85-98) 04/27/23 10:18 MCH 30.1 pg (27-33) 04/27/23 10:18 MCHC 31.5 g/dL (30-55) 04/27/23 10:18 RDW 13.0 % (12.1-15.1) 04/27/23 10:18 Plt Count 364 10^3/cmm (157-399) 04/27/23 10:18 MPV 9.3 fL (7.4-10.4) 04/27/23 10:18 Neut % (Auto) 68.0 % 04/27/23 10:18 Lymph % (Auto) 24.1 % 04/27/23 10:18 [place] % (Auto) 4.8 % 04/27/23 10:18 Eos % (Auto) 1.9 % 04/27/23 10:18 Baso % (Auto) 0.6 % 04/27/23 10:18 Neut # (Auto) 4.55 10^3/uL (1.8-7.7) 04/27/23 10:18 Lymph # (Auto) 1.6 10^3/uL (0.8-4.8) 04/27/23 10:18 [place] # (Auto) 0.3 10^3/uL (0.2-0.9) 04/27/23 10:18 Eos # (Auto) 0.1 10^3/uL (0.0-0.8) 04/27/23 10:18 Baso # (Auto) 0.0 10^3/uL (0.0-0.1) 04/27/23 10:18 Nucleated RBC % (auto) 0 % 04/27/23 10:18 Nucleated RBCs # 0.0 /100WBC 04/27/23 10:18 Sodium 140 mmol/L (136-145) 04/27/23 10:18 Potassium 3.3 mmol/L (3.5-5.1) L 04/27/23 10:18 Chloride 110 mmol/L (98-107) H 04/27/23 10:18 Carbon Dioxide 23 mmol/L (22-29) 04/27/23 10:18 Anion Gap 10.3 (5-19) 04/27/23 10:18 BUN 13 mg/dL (6-20) 04/27/23 10:18 Creatinine 0.9 mg/dL (0.5-0.9) 04/27/23 10:18 GFR Calculation 73.5 mL/min (90-130) L 04/27/23 10:18 Glucose 139 mg/dL (65-115) H 04/27/23 10:18 Calculated Osmolality 292 mOsm/kg (285-295) 04/27/23 10:18 Calcium 7.8 mg/dL (8.5-10.5) L 04/27/23 10:18 Total Bilirubin 0.2 mg/dL (0.15-1.2) 04/27/23 10:18 AST 12 U/L (0-32) 04/27/23 10:18 ALT 13 U/L (0-33) 04/27/23 10:18 Alkaline Phosphatase 57 U/L (35-105) 04/27/23 10:18 Total Protein 5.7 g/dL (6.6-8.7) L 04/27/23 10:18 Albumin 3.1 g/dL (3.5-5.2) L 04/27/23 10:18 Globulin 2.6 g/dL (1.3-4.6) 04/27/23 10:18 All radiology interpretation(s) finalized by discharge Discharge Plan Discharge Patient Disposition: Xfer Short-Term Hosp Clinical Impression: Rectal bleeding Condition: Stable Referrals: Ruma Gonzalez MD [Primary Care Provider] - Coding Level of Care Code ED Covered Button Maker for Shahram Carmona
--- NOTE | 2023-04-27 10:22 | CT_ITS ---
WS: [id number] CT ABDOMEN AND PELVIS WITH CONTRAST HISTORY: rectal bleeding TECHNIQUE: Imaging performed of the abdomen and pelvis with IV contrast. Single phase imaging of the abdomen. Coronal and sagittal reformats are submitted. All CT scans at [facility] use at [address] one of these dose optimization techniques: automated exposure control; mA and/or kV adjustment per patient size (includes targeted exams where dose is matched to clinical indication); or iterative re construction. IV CONTRAST: Omnipaque 350; 100 mL IV. Oral contrast: Yes. DLP: 1796.92 mGy.cm COMPARISON: None available. Lower thorax: Lung bases are clear. Heart is normal size. Small hiatal hernia. Liver/biliary system: Normal size with no intrahepatic dilatation. Gallbladder: Normal. No gallstones or wall thickening. No pericholecystic fluid. Pancreas: Normal size pancreas and pancreatic duct. No adjacent inflammation. Spleen: Normal size spleen. No mass or infarct. Adrenal glands: Normal. Right kidney: Normal. Left kidney: Normal. Aorta: Normal. Lymphadenopathy: None. Free fluid: None. GI tract: Surgical anastomotic sutures are noted in the distal sigmoid. Distal to the sutures there i s diffuse circumferential wall thickening of the colon. The soft tissue thickening extends of presacr al and extends into the mesorectal fat with small lymph nodes. There are diffuse foci of air within t he adjacent presacral soft tissue thickening. No GI tract obstruction. The appendix is normal. Abdominal wall: Small ventral abdominal wall hernia at the umbilicus with soft tissue stranding. Pelvis: Normal uterus. Ovaries are both identified. Nondistended bladder. Presacral soft tissue thick ening contiguous with the rectum. Bones: Unremarkable. IMPRESSION: 1. Distal sigmoid anastomotic sutures are identified with no obstruction. 2. Distal to the anastomotic sutures there is increased soft tissue encasing the rectum and contiguo us with the presacral soft tissue. There are few small foci of air which may be normal postoperative changes. There is some very mild increased density within the presacral soft tissue which could be bl ood at the surgical site or normal postoperative changes. 3. No free air. Notified Myles Sher DO at 04/27/2023 11:07 AM.
[2023-04-27 10:25] LABS: Basophils % 0.6 %; Eosinophils # 0.1 10^3/uL (0.0-0.8); Eosinophils % 1.9 %; Lymphocytes # 1.6 10^3/uL (0.8-4.8); Lymphocytes % 24.1 %; Mean Corpuscular HGB Conc 31.5 g/dL (30-55); Mean Corpuscular Hemoglobin 30.1 pg (27-33); Mean Corpuscular Volume 95.6 fl (85-98); Mean Platelet Volume 9.3 fL (7.4-10.4); Monocytes # 0.3 10^3/uL (0.2-0.9); Monocytes % 4.8 %; Neutrophils # 4.55 10^3/uL (1.8-7.7); Nucleated Red Blood Cells % 0 %; Platelet Count 364 10^3/cmm (157-399); Red Blood Count 2.72 10^6/uL (3.85-5.65); White Blood Count 6.69 10^3/uL (3.29-11.43)
[2023-04-27 10:42] LABS: Alanine Aminotransferase 13 U/L (0-33); Albumin Level 3.1 g/dL (3.5-5.2); Alkaline Phosphatase 57 U/L (35-105); Anion Gap 10.3 (5-19); Aspartate Amino Transferase 12 U/L (0-32); Blood Urea Nitrogen 13 mg/dL (6-20); Calcium 7.8 mg/dL (8.5-10.5); Carbon Dioxide 23 mmol/L (22-29); Chloride 110 mmol/L (98-107); Globulin 2.6 g/dL (1.3-4.6); Glomerular Filtration Rate 73.5 mL/min (90-130); Glucose 139 mg/dL (65-115); Osmolality Calculated 292 mOsm/kg (285-295); Potassium 3.3 mmol/L (3.5-5.1); Sodium 140 mmol/L (136-145); Total Bilirubin 0.2 mg/dL (0.15-1.2); Total Protein 5.7 g/dL (6.6-8.7)
[2023-04-27] MEDS: iohexol 350 mg/mL 500 mL Btl (per mL) IV (10:51)
[2023-04-27] MEDS: piperacillin-tazobactam 4.5 GM in sodium chloride 0.9% (plus) 50 ML IV (11:56)
[2023-04-27] MEDS: sodium chloride 0.9% 1,000 ML 999 ML IV (11:58)
== END 2023-04-27 14:10 | disposition short-term general hospital (02) ==
PROVIDERS: Emergency Provider Family Medicine; PCP Family Medicine
DX: K62.5 Hemorrhage of anus and rectum (principal); Z87.891 Personal history of nicotine dependence
CPT/HCPCS: 36415; 74177; 80053; 85025; 96374; 99285; J2543; J7030; Q9967

== ENCOUNTER → 2023-05-27 11:55 | Outpatient (BNVA) | payer MEDICARE, MEDICAID, SELFPAY | PROVIDERS: PCP Nurse Practitioner Family; Visit Provider Nurse Practitioner Family | DX: E03.9 Hypothyroidism, unspecified (principal); E78.5 Hyperlipidemia, unspecified; R53.83 Other fatigue; I10 Essential (primary) hypertension; E55.9 Vitamin D deficiency, unspecified; R68.89 Other general symptoms and signs; D64.9 Anemia, unspecified | CPT/HCPCS: 80053; 80061; 82306; 84443; 85025 ==

== ENCOUNTER 2023-08-25 11:53 | Outpatient (RCR) | payer MEDICARE, MEDICAID, SELFPAY | END 2023-09-02 23:59 | disposition home or self-care (01) | LOC: SPT 11:53 | PROVIDERS: PCP Nurse Practitioner Family | DX: M62.89 Other specified disorders of muscle (principal) | CPT/HCPCS: 97161; 97530 ==

== ENCOUNTER 2023-09-03 06:00 | Outpatient (RCR) | payer MEDICARE, MEDICAID, SELFPAY | END 2023-10-01 23:59 | disposition home or self-care (01) | LOC: SPT 06:00 | PROVIDERS: PCP Nurse Practitioner Family | DX: M62.89 Other specified disorders of muscle (principal) | CPT/HCPCS: 97110; 97530 ==

== ENCOUNTER 2023-10-02 06:00 | Outpatient (RCR) | payer MEDICARE, MEDICAID, SELFPAY | END 2023-11-01 23:59 | disposition home or self-care (01) | LOC: SPT 06:00 | PROVIDERS: PCP Nurse Practitioner Family | DX: M62.89 Other specified disorders of muscle (principal) | CPT/HCPCS: 97530 ==

== ENCOUNTER → 2023-10-26 09:32 | Outpatient (BNVA) | payer MEDICARE, MEDICAID, SELFPAY | PROVIDERS: PCP Nurse Practitioner Family; Visit Provider Nurse Practitioner Family | DX: F32.A Depression, unspecified (principal); D64.9 Anemia, unspecified | CPT/HCPCS: 84443; 85025 ==

== ENCOUNTER → 2023-12-14 09:18 | Outpatient (BNVA) | payer MEDICARE, MEDICAID, SELFPAY | PROVIDERS: PCP Nurse Practitioner Family; Visit Provider Nurse Practitioner Family | DX: D64.9 Anemia, unspecified (principal) | CPT/HCPCS: 83550; 85025 ==

== ENCOUNTER → 2024-01-05 14:00 | Outpatient (BNVA) | payer MEDICARE, MEDICAID, SELFPAY | PROVIDERS: PCP Nurse Practitioner Family; Visit Provider Nurse Practitioner Family | DX: R30.0 Dysuria (principal); Z12.4 Encounter for screening for malignant neoplasm of cervix; Z78.9 Other specified health status | CPT/HCPCS: 81000; 87081; 88175 ==

== ENCOUNTER → 2025-03-21 10:50 | Outpatient (BNVA) | payer MEDICARE, MEDICAID, SELFPAY | PROVIDERS: PCP Nurse Practitioner Family; Visit Provider Nurse Practitioner Family | DX: N39.0 Urinary tract infection, site not specified (principal); I10 Essential (primary) hypertension; Z79.899 Other long term (current) drug therapy; R53.83 Other fatigue | CPT/HCPCS: 80053; 80061; 80175; 81000; 84443; 85025; 87086 ==